=== PATIENT | female | born 1975 | race Caucasian/White ===

== ENCOUNTER → 2021-01-28 | Outpatient (CLI) | payer OTHER ==
--- NOTE | 2021-02-04 11:59 | MM ---
Reason for exam: screening (asymptomatic). Last mammogram was performed 1 year and 2 months ago. History: Patient is nulliparous. Physical Findings: A clinical breast exam by your physician is recommended on an annual basis and results should be correlated with mammographic findings. MG 3D Screening Mammo W/Cad Bilateral CC and MLO view(s) were taken. Prior study comparison: December 13, 2019, mammogram, performed at [place]. July 15, 2018, mammogram, performed at [place]. The breast tissue is heterogeneously dense. This may lower the sensitivity of mammography. There are benign appearing round calcifications bilaterally. There is chronic nodularity in the right breast. There is no discrete abnormality. ASSESSMENT: Benign, BI-RAD 2 RECOMMENDATION: Routine screening mammogram of both breasts in 1 year.
== END | disposition home or self-care (01) ==
LOC: RADMAMWWP 08:02
PROVIDERS: ATTEND Obstetrics & Gynecology
DX: Z12.31 Encounter for screening mammogram for malignant neoplasm of breast (principal)
CPT/HCPCS: 77063; 77067

== ENCOUNTER → 2021-03-20 | Outpatient (CLI) | payer OTHER ==
--- NOTE | 2021-03-20 12:57 | ECHOF ---
Referral Reason:I87.2 Venous insufficiency MEASUREMENTS -------- HEIGHT: 167.6 cm WEIGHT: 117.9 kg BP: RVIDd: 3.0 cm (< 3.3) IVSd: 1.7 cm (0.6 - 1.1) LVIDd: 3.8 cm (3.9 - 5.3) LVPWd: 1.6 cm (0.6 - 1.1) IVSs: 2.1 cm LVIDs: 1.4 cm LVPWs: 2.1 cm LAESV Index (A-L): 25.67 ml/m Ao Diam: 3.1 cm (2.0 - 3.7) AV Cusp: 2.3 cm (1.5 - 2.6) LA Diam: 4.5 cm (2.7 - 3.8) MV EXCURSION: 15.009 mm (> 18.000) MV EF SLOPE: 45 mm/s (70 - 150) EPSS: 0.4 cm MV E Luis: 0.60 m/s MV DecT: 248 ms MV A Luis: 0.76 m/s MV E/A Ratio: 0.79 RAP: 5.00 mmHg RVSP: 13.97 mmHg FINDINGS -------- Sinus rhythm. This was a technically adequate study. The left ventricular size is normal. There is moderate concentric left ventricular hypertrophy. O verall left ventricular systolic function is normal with, an EF between 55 - 60 %. The diastolic fi lling pattern is normal for the age of the patient 14.21. The right ventricle is normal in size. Normal LA size by volume 22+/-6 ml/m2. The right atrial size is normal. Interatrial and interventricular septum intact. The aortic valve is trileaflet and appears structurally normal. There is no evidence of aortic regu rgitation. There is no evidence of aortic stenosis. There is trace mitral regurgitation. Mild tricuspid regurgitation present. There is no evidence of pulmonary hypertension. The right v entricular systolic pressure, as measured by Doppler, is 13.97mmHg. There is no pulmonic regurgitation present. The aortic root size is normal. Normal inferior vena cava with normal inspiratory collapse consistent with estimated right atrial pre ssure of 5 mmHg. There is no pericardial effusion. CONCLUSIONS -------- 1. The left ventricular size is normal. 2. There is moderate concentric left ventricular hypertrophy. 3. Overall left ventricular systolic function is normal with, an EF between 55 - 60 %. 4. The diastolic filling pattern is normal for the age of the patient 14.21 5. Mild tricuspid regurgitation present. ASSISTANT SCIENTIST: Nayla Zimmerman RDCS
== END | disposition home or self-care (01) ==
LOC: RADECHMAIN 08:08
PROVIDERS: ATTEND Internal Medicine
DX: I07.1 Rheumatic tricuspid insufficiency (principal)
CPT/HCPCS: 93306

== ENCOUNTER 2021-04-03 09:23 | Inpatient (IN) | payer OTHER ==
[2021-04-03 09:37] LABS: Glucose,Whole Blood 277 mg/dL (75-99)
[2021-04-03] MEDS ORDERED: SODIUM CHLORIDE 0.9% 1,000 ML IV STA (09:41)
--- NOTE | 2021-04-03 10:13 | ED ---
Neuro HPI - General Chief Complaint: Neuro Symptoms/Deficit Stated Complaint: left side numbness Time Seen by Provider: 04/03/21 09:40 Source: patient, RN notes reviewed Mode of arrival: ambulatory Limitations: no limitations - History of Present Illness Is the patient presenting with stroke symptoms?: Yes Last Known Well Date: 04/02/21 Last Known Well Time: 09:00 Initial Comments: This a 45-year-old female presents emergency Department chief complaint of left- sided numbness, heaviness. Patient states this started yesterday at breakfast before 9 AM yesterday. Patient states that she initially thought she was just related to her carpal tunnel which she had numbness in left arm and developed numbness and left leg and again blame this on the way she was sitting on a barst ool. Patient states that symptoms progressively worsened and which she has whole left sided body numbness states it's heavy. Patient states she just feels off, slightly off balance at times. No went of headache, blurred vision or any focal weakness. Patient states she was seen by her PCP and sent here to rule out CVA. She is a known diabetic, history of hypothyroidism, myasthenia gravis. - Related Data Home Medications: Home Medications Medication Instructions Recorded Confirmed Aspirin [[place]-Fela Sol[place] Aspirin EC] 81 mg PO DAILY 04/03/21 04/03/21 Cholecalciferol [Vitamin D3 (25 50 mcg PO DAILY 04/03/21 04/03/21 Mcg = 1000 Iu)] Furosemide [Lasix] 20 mg PO DAILY 04/03/21 04/03/21 Insulin Aspart (For Pump) [NovoLOG 0.01 unit SQ-PUMP CONTINUOUS 04/03/21 04/03/21 (For Pump)] Levothyroxine Sodium [Synthroid] 150 mcg PO DAILY 04/03/21 04/03/21 Magnesium Oxide [Lee] 500 mg PO DAILY 04/03/21 04/03/21 Metoprolol Succinate (ER) [Toprol 100 mg PO DAILY 04/03/21 04/03/21 Xl] Multivitamins, Thera [Multivitamin 1 tab PO DAILY 04/03/21 04/03/21 (formulary)] Progesterone, Micronized 200 mg PO DIRECTED 04/03/21 04/03/21 [Progesterone] Rosuvastatin Calcium [Crestor] 20 mg PO DAILY 04/03/21 04/03/21 Ubidecarenone [Co Q-10] 100 mg PO DAILY 04/03/21 04/03/21 Valsartan/Hydrochlorothiazide 1 tab PO DAILY 04/03/21 04/03/21 [Valsartan-Hctz 320-12.5 mg Tab] Vitamin B Complex 1 cap PO DAILY 04/03/21 04/03/21 metFORMIN HCL [Glucophage] 500 mg PO BID 04/03/21 04/03/21 Allergies/Adverse Reactions: Allergies Allergy/AdvReac Type Severity Reaction Status Date / Time No Known Allergies Allergy Verified 04/03/21 11:16 Review of Systems ROS Statement: Those systems with pertinent positive or pertinent negative responses have been documented in the HPI. ROS Other: All systems not noted in ROS Statement are negative. General Exam Limitations: no limitations General appearance: alert, in no apparent distress Head exam: Present: atraumatic, normocephalic, normal inspection Eye exam: Present: normal appearance, PERRL, EOMI. Absent: scleral icterus, conjunctival injection, periorbital swelling ENT exam: Present: normal exam, normal oropharynx, mucous membranes moist Neck exam: Present: normal inspection, full ROM. Absent: tenderness, meningismus, lymphadenopathy Respiratory exam: Present: normal lung sounds bilaterally. Absent: respiratory distress, wheezes, rales, rhonchi, stridor Cardiovascular Exam: Present: regular rate, normal rhythm, normal heart sounds. Absent: systolic murmur, diastolic murmur, rubs, gallop, clicks Extremities exam: Present: other (Upper and lower extremity strength equal bilaterally neurovascular intact) Neurological exam: Present: alert, oriented X3, CN II-XII intact, reflexes nor mal. Absent: motor sensory deficit Expanded Patient oriented to: Present: person, place, time Speech: Present: fluid speech Cranial nerves: EOM's Intact: Normal, Tongue Deviation: Normal, Nystagmus: Normal Cerebellar function: Finger to Nose: Normal Sensory exam: Upper Extremity Light Touch: Normal, Lower Extremity Light Touch: Normal Motor strength exam: RUE: 5, LUE: 5, RLE: 5, LLE: 5 Eye Response: (4) open spontaneously Motor Response: (6) obeys commands Verbal Response: (5) oriented [place] Total: 15 Skin exam: Present: warm, dry, intact, normal color. Absent: rash Stroke MDM - Lab Data Result diagrams: 04/03/21 09:57 04/03/21 09:57 Lab Results 04/03/21 04/03/21 04/03/21 Range/Units 09:35 09:57 09:57 WBC 7.0 (3.8-10.6) k/uL RBC 5.03 (3.80-5.40) m/uL Hgb 15.7 (11.4-16.0) gm/dL Hct 44.5 (34.0-46.0) % MCV 88.6 D (80.0-100.0) fL MCH 31.2 (25.0-35.0) pg MCHC 35.2 (31.0-37.0) g/dL RDW 12.7 (11.5-15.5) % Plt Count 276 (150-450) k/uL MPV 7.8 Neutrophils % 71 % Lymphocytes % 18 % Monocytes % 6 % Eosinophils % 2 % Basophils % 1 % Neutrophils # 5.0 (1.3-7.7) k/uL Lymphocytes # 1.3 (1.0-4.8) k/uL Monocytes # 0.4 (0-1.0) k/uL Eosinophils # 0.1 (0-0.7) k/uL Basophils # 0.1 (0-0.2) k/uL PT 10.8 (9.0-12.0) sec INR 1.0 (<1.2) APTT 24.6 (22.0-30.0) sec Sodium (137-145) mmol/L Potassium (3.5-5.1) mmol/L Chloride (98-107) mmol/L Carbon Dioxide (22-30) mmol/L Anion Gap mmol/L BUN (7-17) mg/dL Creatinine (0.52-1.04) mg/dL Est GFR (CKD-EPI)AfAm (>60 ml/min/1.73 sqM) Est GFR (CKD-EPI)NonAf (>60 ml/min/1.73 sqM) Glucose (74-99) mg/dL POC Glucose (mg/dL) 277 H (75-99) mg/dL POC Glu Regeneration Operator ID Cortez Schneider Calcium (8.4-10.2) mg/dL Total Bilirubin (0.2-1.3) mg/dL AST (14-36) U/L ALT (4-34) U/L Alkaline Phosphatase (38-126) U/L Troponin I (0.000-0.034) ng/mL Total Protein (6.3-8.2) g/dL Albumin (3.5-5.0) g/dL 04/03/21 04/03/21 Range/Units 09:57 09:57 WBC (3.8-10.6) k/uL RBC (3.80-5.40) m/uL Hgb (11.4-16.0) gm/dL Hct (34.0-46.0) % MCV (80.0-100.0) fL MCH (25.0-35.0) pg MCHC (31.0-37.0) g/dL RDW (11.5-15.5) % Plt Count (150-450) k/uL MPV Neutrophils % % Lymphocytes % % Monocytes % % Eosinophils % % Basophils % % Neutrophils # (1.3-7.7) k/uL Lymphocytes # (1.0-4.8) k/uL Monocytes # (0-1.0) k/uL Eosinophils # (0-0.7) k/uL Basophils # (0-0.2) k/uL PT (9.0-12.0) sec INR (<1.2) APTT (22.0-30.0) sec Sodium 135 L (137-145) mmol/L Potassium 4.1 (3.5-5.1) mmol/L Chloride 98 (98-107) mmol/L Carbon Dioxide 29 (22-30) mmol/L Anion Gap 8 mmol/L BUN 16 (7-17) mg/dL Creatinine 1.00 (0.52-1.04) mg/dL Est GFR (CKD-EPI)AfAm 78 (>60 ml/min/1.73 sqM) Est GFR (CKD-EPI)NonAf 68 (>60 ml/min/1.73 sqM) Glucose 301 H (74-99) mg/dL POC Glucose (mg/dL) (75-99) mg/dL POC Glu Regeneration Operator ID Calcium 10.1 (8.4-10.2) mg/dL Total Bilirubin 0.9 (0.2-1.3) mg/dL AST 64 H (14-36) U/L ALT 67 H (4-34) U/L Alkaline Phosphatase 99 (38-126) U/L Troponin I <0.012 (0.000-0.034) ng/mL Total Protein 8.0 (6.3-8.2) g/dL Albumin 4.7 (3.5-5.0) g/dL - Medical Decision Making 45-year-old female presented from for left-sided paresthesias. She had some associated heaviness, slight weakness in the left and some difficulty with finger-nose and PCPs office. Sent in to rule out CVA. Patient CT does not show an acute changes so patient still symptomatic feels off balance on gait. Patient will be admitted for neurology evaluation, MRI. 04/03/21 11:57 EKG performed at 9:30 normal sinus rhythm rate of 81 AL 162 Qrs 104 QT/QTC 400/464 Past Medical History Past Medical History: Diabetes Mellitus, Hypertension, Thyroid Disorder Additional Past Medical History / Comment(s): insulin pump History of Any Multi-Drug Resistant Organisms: None Reported Additional Past Surgical History / Comment(s): thyroidectomy Past Psychological History: No Psychological Hx Reported Smoking Status: Never smoker Past Alcohol Use History: None Reported Past Drug Use History: None Reported Course Vital Signs 04/03/21 09:24 Temperature 98.3 F Pulse Rate 92 Respiratory 16 Rate Blood Pressure 181/102 O2 Sat by Pulse 99 Oximetry Disposition Clinical Impression: Cerebrovascular accident (CVA) Disposition: ADMITTED IP TO THIS [facility] Condition: Fair Referrals: Sawyer Potts MD [Primary Care Provider] - 1-2 days
[2021-04-03 10:28] LABS: Basophils # (A) 0.1 k/uL (0-0.2); Basophils % (A) 1 %; Eosinophils # (A) 0.1 k/uL (0-0.7); Eosinophils % (A) 2 %; HCT 44.5 % (34.0-46.0); HGB 15.7 gm/dL (11.4-16.0); Lymphocytes # (A) 1.3 k/uL (1.0-4.8); Lymphocytes % (A) 18 %; MCH 31.2 pg (25.0-35.0); MCHC 35.2 g/dL (31.0-37.0); Mean Platelet Volume 7.8; Monocytes # (A) 0.4 k/uL (0-1.0); Monocytes % (A) 6 %; Neutrophils % (A) 71 %; Platelet Count 276 k/uL (150-450); RBC 5.03 m/uL (3.80-5.40); RDW 12.7 % (11.5-15.5)
[2021-04-03 10:39] LABS: Albumin 4.7 g/dL (3.5-5.0); Calcium 10.1 mg/dL (8.4-10.2); Potassium 4.1 mmol/L (3.5-5.1); Total Bilirubin 0.9 mg/dL (0.2-1.3)
[2021-04-03 10:44] LABS: MCV 88.6 fL (80.0-100.0)
[2021-04-03 10:51] LABS: Partial Thromboplastin Time 24.6 sec (22.0-30.0); Prothrombin Time 10.8 sec (9.0-12.0)
--- NOTE | 2021-04-03 10:57 | CT ---
EXAMINATION TYPE: CT brain wo con DATE OF EXAM: 04/03/2021 COMPARISON: None INDICATION: Lt side numbness DLP: 1127.4 mGycm, Automated exposure control for dose reduction was used. CONTRAST: None CT of the brain is performed utilizing 3 mm thick sections through the posterior fossa and 3 mm thick sections through the remaining calvarium. Study is performed within 24 hours of arrival to the hosp ital. No abnormal hyperdensity is present to suggest an acute intracranial hemorrhage. No mass lesion is evident. No acute infarcts are evident. Very minimal periventricular white matter hypodensity may be present m ost likely on the basis of microvascular ischemic change. Ventricles and sulci are appropriate for the patient age. Paranasal sinuses and mastoid air cells within the [id number] are clear. Proptosis is present. IMPRESSIONS: 1. There may be some minimal chronic appearing periventricular white matter ischemic changes. 2. No acute intracranial process.
--- NOTE | 2021-04-03 11:37 | XR ---
EXAMINATION TYPE: XR chest 2V DATE OF EXAM: 04/03/2021 COMPARISON: NONE HISTORY: Altered mental status TECHNIQUE: Frontal and lateral views of the chest are obtained. FINDINGS: There is no focal air space opacity, pleural effusion, or pneumothorax seen. The cardiac silhouette size is within normal limits. The osseous structures are intact. IMPRESSION: No acute cardiopulmonary process.
[2021-04-03] MEDS ORDERED: ASPIRIN 325 MG TAB PO STA (11:58)
[2021-04-03] MEDS ORDERED: ACETAMINOPHEN TAB 325 MG TAB PO PRN (11:58)
[2021-04-03] MEDS ORDERED: MELATONIN 3 MG TABLET PO PRN (12:12)
[2021-04-03] MEDS ORDERED: NALOXONE 0.4 MG/ML 1 ML VIAL IV PRN (12:12)
[2021-04-03] MEDS: SODIUM CHLORIDE 0.9% 1,000 ML IV SCH ×2 (12:52→23:25)
[2021-04-03] MEDS: Insulin Aspart (For Pump) 100 UNIT/ML VIAL SQ-PUMP SCH (12:53)
--- NOTE | 2021-04-03 14:15 | US ---
EXAMINATION TYPE: US carotid duplex BILAT DATE OF EXAM: 04/03/2021 COMPARISON: NONE CLINICAL HISTORY: CVA. EXAM MEASUREMENTS: RIGHT: Peak Systolic Velocity (PSV) cm/sec ----- Right CCA: 53.1 ----- Right ICA: 77.9 ----- Right ECA: 87.9 ICA/CCA ratio: 1.5 RIGHT: End Diastole cm/sec ----- Right CCA: 13.0 ----- Right ICA: 21.9 ----- Right ECA: 8.9 LEFT: Peak Systolic Velocity (PSV) cm/sec ----- Left CCA: 65.9 ----- Left ICA: 69.8 ----- Left ECA: 4.8 ICA/CCA ratio: 1.1 LEFT: End Diastole cm/sec ----- Left CCA: 9.8 ----- Left ICA: 17.6 ----- Left ECA: 4.8 VERTEBRALS (direction of flow): Right Vertebral: Antegrade Left Vertebral: Antegrade Rhythm: Normal Morbidly obese patients. No obvious atherosclerotic changes, no significant velocity elevations. IMPRESSION: No sonographic evidence for hemodynamically significant stenosis in the carotid arteries. Criteria for Assigning % of Stenosis / Diameter reduction (Estimation based on the indirect measurements of the internal carotid artery velocities (ICA PSV). 1. Normal (no stenosis)=ICA PSV < 125 cm/s: ratio < 2.0: ICA EDV<40 cm/s. 2. Less than 50% stenosis=ICA PSV < 125 cm/s: ratio < 2.0: ICA EDV<40 cm/s. 3. 50 to 69% stenosis=ICA PSV of 125 to 230 cm/s: ration 2.0 ? 4.0: ICA EDV 40-100 cm/s. 4. Greater than 70% stenosis to near occlusion= ICA PSV > 230 cm/s: ratio > 4.0: ICA EDV > 100 cm/s. 5. Near occlusion= ICA PSV velocities may be low or undetectable: variable ratio and ICA EDV. 6. Total occlusion=unable to detect flow.
--- NOTE | 2021-04-03 15:12 | P.HPIM ---
History of Present Illness H&P Date: 04/03/21 Chief Complaint: Left-sided numbness 45-year-old woman with a medical history of diabetes, hypertension, hyperlipidemia, Graves' disease status post thyroidectomy with iatrogenic hypothyroidism presented for left-sided numbness. Patient says her symptoms started yesterday morning with left hand numbness and progressed to left arm numbness, then later on in the evening she also developed left leg numbness. Throughout the day today she intermittently experienced left facial numbness as well. She called her primary care physician regarding these symptoms and was advised to come to the emergency room to rule out stroke. Patient has ever had a stroke before. Patient denies symptoms of fevers, chills, nausea, vomiting, chest pain, palpitations, cough, dyspnea, abdominal pain, constipation, diarrhea, dysuria, dyschezia, weakness of extremities. She denies visual c hanges, tinnitus, photo/phonophobia. In the emergency room, patient was afebrile, 181/102, pulse rate 92, 99% on room air. Review of Systems All Systems reviewed and pertinent positives and negatives noted in HPI, all other symptoms are negative Past Medical History Past Medical History: Diabetes Mellitus, Hypertension, Thyroid Disorder Additional Past Medical History / Comment(s): insulin pump History of Any Multi-Drug Resistant Organisms: None Reported Additional Past Surgical History / Comment(s): thyroidectomy Past Psychological History: No Psychological Hx Reported Smoking Status: Never smoker Past Alcohol Use History: None Reported Past Drug Use History: None Reported Medications and Allergies Home Medications Medication Instructions Recorded Confirmed Type Aspirin [[place] Aspirin EC] 81 mg PO DAILY 04/03/21 04/03/21 History Cholecalciferol [Vitamin D3 (25 50 mcg PO DAILY 04/03/21 04/03/21 History Mcg = 1000 Iu)] Furosemide [Lasix] 20 mg PO DAILY 04/03/21 04/03/21 History Insulin Aspart (For Pump) [NovoLOG 0.01 unit SQ-PUMP CONTINUOUS 04/03/21 04/03/21 History (For Pump)] Levothyroxine Sodium [Synthroid] 150 mcg PO DAILY 04/03/21 04/03/21 History Magnesium Oxide [Lee] 500 mg PO DAILY 04/03/21 04/03/21 History Metoprolol Succinate (ER) [Toprol 100 mg PO DAILY 04/03/21 04/03/21 History Xl] Multivitamins, Thera [Multivitamin 1 tab PO DAILY 04/03/21 04/03/21 History (formulary)] Progesterone, Micronized 200 mg PO DIRECTED 04/03/21 04/03/21 History [Progesterone] Rosuvastatin Calcium [Crestor] 20 mg PO DAILY 04/03/21 04/03/21 History Ubidecarenone [Co Q-10] 100 mg PO DAILY 04/03/21 04/03/21 History Valsartan/Hydrochlorothiazide 1 tab PO DAILY 04/03/21 04/03/21 History [Valsartan-Hctz 320-12.5 mg Tab] Vitamin B Complex 1 cap PO DAILY 04/03/21 04/03/21 History metFORMIN HCL [Glucophage] 500 mg PO BID 04/03/21 04/03/21 History Allergies Allergy/AdvReac Type Severity Reaction Status Date / Time No Known Allergies Allergy Verified 04/03/21 11:16 Physical Exam Osteopathic Statement: *. No significant issues noted on an osteopathic structural exam other than those noted in the History and Physical/Consult. Vitals: Vital Signs Temp Pulse Resp BP Pulse Ox 04/03/21 12:54 80 18 147/87 99 04/03/21 09:24 98.3 F 92 16 181/102 99 Intake and Output 04/03/21 04/03/21 04/03/21 06:59 14:59 22:59 Other: Weight 119.295 kg Gen: awake, alert HEENT: normocephalic, atraumatic, good hearing acuity, moist mucous membranes Resp: good air exchange, breathing comfortably with no accessory muscle use, clear to auscultation bilaterally CVS: good distal perfusion x 4, regular rate and rhythm without murmurs GI: soft, NTTP, ND, appropriate bowel sounds : no SPT, no CVAT, guerra catheter not present MSK: no pitting edema, no clubbing Neuro: Decreased sensation to light touch on the left side, no motor weakness, intact finger to nose bilaterally Psych: cooperative, euthymic mood Results CBC & Chem 7: 04/03/21 09:57 04/03/21 09:57 Labs: Abnormal Lab Results - Last 24 Hours (Table) 04/03/21 04/03/21 Range/Units 09:35 09:57 Sodium 135 L (137-145) mmol/L Glucose 301 H (74-99) mg/dL POC Glucose (mg/dL) 277 H (75-99) mg/dL AST 64 H (14-36) U/L ALT 67 H (4-34) U/L Assessment and Plan Assessment: Left-sided numbness -Admit to telemetry -Neurology consult -Aspirin, statin -MRI of the brain pending -Echo, pending -Carotid Doppler did not demonstrate stenosis -A1c, TSH, lipid panel -PT/OT Hypertension Hyperlipidemia Type 2 diabetes, insulin-dependent Hypothyroidism, iatrogenic -Home medications reviewed and reconciled -Holding home antihypertensives for the next 24 hours -Before meals/at bedtime sugar checks -Continue continuous insulin pump -Low-dose sliding scale insulin -Continue levothyroxine Patient is full code Lovenox DVT prophylaxis
[2021-04-03] MEDS ORDERED: CLOPIDOGREL 75 MG TAB PO STA (16:12)
--- NOTE | 2021-04-03 16:23 | P.CNNES ---
History of Present Illness Consult date: 04/03/21 Requesting physician: Porfirio Vaughan Reason for Consult: stroke History of Present Illness: This is a 45-year-old woman with medical history of diabetes mellitus type I (since age 6 years old) on insulin pump, Graves disease s/p thyoridectomy (2005), hypothyroidism, Hypertension (since 2003), hypercholestremia who presen long to the emergency department on 04/02/2021 for numbness over left side of the body including the face. The patient was sent by her PCP and result he send the patient to the hospital. The patient the her symptoms began yesterday (04/02/2021) around 9:00 AM in which she noticed that she is having numbness over the left hand and she felt that was progressively ascended up then she noticed that in her lower extremity in left foot that acended up then entire left side and then left side of face. She also has tingling on the left side. She denies any focal weakness, visual disturbance, difficulty getting her words out or swallowing. She didn't make much out of it since she felt she was wor wesley too hard. As a result she was seen by her PCP and she was sent to the hospital to rule out stroke. He denies of any fever, diarrhea, any upper respiratory tract infection recently. She denies history of stroke or TIA in the past. She denies of tobacco use or illcit drug use. She socially drinks alcohol. In her chart it states she had Myasthenia Gravis which she denied it. Some of the patient home medication consists of aspirin 81 mg, Crestor 20 mg daily, metformin, Lasix, hydrochlorothiazide, Synthroid, vitamin D, magnesium oxide, Lasix, hydrochlorothiazide with valsartan. She stated in the past she was on Lipitor high dose (does not recall and had diarrhea). Some other workup in the hospital consisted of: Initial vital signs: Blood pressure of 181/102, heart rate of 92, respiratory of 16, temperature of 98.3 Fahrenheit oral and pulse ox of 99% room air. CT of the head is reported as there may be some minimal chronic-appearing periventricular white matter ischemic changes. No acute intracranial process. Carotid duplex is reported as no sonographic evidence for hemodynamically significant stenosis in the carotid arteries. EKG is reported as normal sinus rhythm. Normal EKG. Patient initial POC glucose is 277 and the serum glucose is 301 which is elevated. The sodium is 135 which is mildly low. AST of 64 and ALT of 67 inches mildly elevated. Otherwise the rest of the chemistry panel is within normal limits. CBC is within normal limits. Review of Systems Review of system: The 12 point system was reviewed and apparent positive and negative per HPI. Past Medical History Past Medical History: Diabetes Mellitus, Hypertension, Thyroid Disorder Additional Past Medical History / Comment(s): insulin pump History of Any Multi-Drug Resistant Organisms: None Reported Additional Past Surgical History / Comment(s): thyroidectomy Past Psychological History: No Psychological Hx Reported Smoking Status: Never smoker Past Alcohol Use History: None Reported Past Drug Use History: None Reported Medications and Allergies Home Medications Medication Instructions Recorded Confirmed Type Aspirin [[place] Aspirin EC] 81 mg PO DAILY 04/03/21 04/03/21 History Cholecalciferol [Vitamin D3 (25 50 mcg PO DAILY 04/03/21 04/03/21 History Mcg = 1000 Iu)] Furosemide [Lasix] 20 mg PO DAILY 04/03/21 04/03/21 History Insulin Aspart (For Pump) [NovoLOG 0.01 unit SQ-PUMP CONTINUOUS 04/03/21 04/03/21 History (For Pump)] Levothyroxine Sodium [Synthroid] 150 mcg PO DAILY 04/03/21 04/03/21 History Magnesium Oxide [Lee] 500 mg PO DAILY 04/03/21 04/03/21 History Metoprolol Succinate (ER) [Toprol 100 mg PO DAILY 04/03/21 04/03/21 History Xl] Multivitamins, Thera [Multivitamin 1 tab PO DAILY 04/03/21 04/03/21 History (formulary)] Progesterone, Micronized 200 mg PO DIRECTED 04/03/21 04/03/21 History [Progesterone] Rosuvastatin Calcium [Crestor] 20 mg PO DAILY 04/03/21 04/03/21 History Ubidecarenone [Co Q-10] 100 mg PO DAILY 04/03/21 04/03/21 History Valsartan/Hydrochlorothiazide 1 tab PO DAILY 04/03/21 04/03/21 History [Valsartan-Hctz 320-12.5 mg Tab] Vitamin B Complex 1 cap PO DAILY 04/03/21 04/03/21 History metFORMIN HCL [Glucophage] 500 mg PO BID 04/03/21 04/03/21 History Allergies Allergy/AdvReac Type Severity Reaction Status Date / Time No Known Allergies Allergy Verified 04/03/21 11:16 Physical Examination - Vital Signs Vital Signs: Vital Signs Temp Pulse Resp BP Pulse Ox 04/03/21 12:54 80 18 147/87 99 04/03/21 09:24 98.3 F 92 16 181/102 99 Intake and Output 04/03/21 04/03/21 04/03/21 06:59 14:59 22:59 Other: Weight 119.295 kg GENERAL: The patient is lying in bed and is not in acute distress. CHEST: The heart rate is regular rate rhythm. No murmurs to auscultation. No carotid bruit bilaterally. LUNG: Clear to auscultation bilaterally no wheezing noted throughout. Not labored breathing. ABDOMEN/GI: Bowel sounds present in all 4 quadrants. No tenderness to palpation throughout. NEUROLOGICAL: Higher mental function: The patient is awake, alert, oriented to self, place and time. Patient is following commands. No aphasia and no neglect. Cranial nerves: The pupils are round, equal and reactive to light and accommodation. Visual mcallister are full to confrontation throughout. Extraocular movement is intact no nystagmus is noted. Facial sensation is decreased to touch over the left V2 and V3 disturbtion, otherwise normal to touch elsewhere. The facial strength is normal throughout. Hearing is normal bilaterally to hand rub. Tongue is midline and moved [id number] without any difficulty. No dysarthria is noted. Shoulder shrug is normal bilaterally. Motor: Gait is deferred. The strength is 5 over 5 throughout. Normal tone and bulk. Cerebellum: Normal finger to nose bilaterally. Sensation: Sensation is decrease over the entire left lower extremity but was patchy over the left upper extremity to touch. Reflexes (right/left): 2+ throughout upper while patellar are 1-2+ and ankles are 1+ bilaterally.. Plantars are mute bilaterally. Results Anderson virus PCR was not detected. Basic coagulation study are within normal limits. - Laboratory Findings CBC and BMP: 04/03/21 09:57 04/03/21 09:57 Abnormal Lab Findings: Abnormal Labs 04/03/21 04/03/21 09:35 09:57 Sodium 135 L Glucose 301 H POC Glucose (mg/dL) 277 H AST 64 H ALT 67 H Assessment and Plan Assessment: * Paresthesia over the entire left side including the face is the likely due to subacute stroke (symptom onset on 04/02/2021). No IV tpa since outside window. Likely stroke etiology is small vessel disease because of her risk factors (DM, HTN, hypercholestremia and obesity) * Eleavated sugar on presentation with history of type I diabetes mellitus (on insulin pump) * Mild elevated liver function * Hypertension (since 2003) * Hypercholestremia (since 2003) * History of Graves disease s/p thyroidectomy 2005 * Hypothyroidism * Morbid obesity Plan: The ED the patient was given aspirin 325 mg once. Patient was restarted on her home medication of aspirin 81 mg. I also started the patient on the Plavix 75 mg daily and will load the patient with Plavix 300 mg once today. She was started on Lipitor 80 mg daily at bedtime for secondary stroke prophylaxis but I will decrease it to 40 mg daily at bedtime because of the the mild elevated liver function test and could not tolerate high dose in the past (had diarrhea). MR the brain, 2-D echo, TSH, HbA1c and lipid panel are ordered. PT, OT and KEYSEATING MACHINE SET UP OPERATOR are consulted Placed the patient on every 4 hours neuro checks. Placed on continuous cardiac monitoring. We'll defer the rest of the medical management to the primary team The plan is discussed with the patient and her nurse. Thank you for the consultation. Clifford Guadalupe MD Neuro-Hospitalist Time with Patient: Greater than 30
[2021-04-03 16:54] LABS: Glucose,Whole Blood 123 mg/dL (75-99)
[2021-04-03] MEDS: INSULIN ASPART (NovoLOG) 100 UNIT/ML VIAL SQ SCH (17:51)
[2021-04-03 20:13] LABS: Glucose,Whole Blood 139 mg/dL (75-99)
[2021-04-03] MEDS: ATORVASTATIN 40 MG TAB PO SCH (20:31)
[2021-04-03] MEDS ORDERED: ATORVASTATIN 80 MG TAB PO SCH (21:00)
[2021-04-04] MEDS: LEVOTHYROXINE 75 MCG TAB PO SCH (06:26)
[2021-04-04] MEDS: INSULIN ASPART (NovoLOG) 100 UNIT/ML VIAL SQ SCH ×3 (06:28→16:58)
[2021-04-04 06:39] LABS: Glucose,Whole Blood 113 mg/dL (75-99)
[2021-04-04 07:26] LABS: Basophils % (A) 1 %; Eosinophils # (A) 0.1 k/uL (0-0.7); Eosinophils % (A) 2 %; HCT 41.8 % (34.0-46.0); HGB 14.6 gm/dL (11.4-16.0); Lymphocytes # (A) 1.5 k/uL (1.0-4.8); Lymphocytes % (A) 26 %; MCH 31.2 pg (25.0-35.0); MCHC 34.9 g/dL (31.0-37.0); MCV 89.4 fL (80.0-100.0); Mean Platelet Volume 7.9; Monocytes # (A) 0.5 k/uL (0-1.0); Monocytes % (A) 8 %; Neutrophils # (A) 3.5 k/uL (1.3-7.7); Neutrophils % (A) 61 %; Platelet Count 248 k/uL (150-450); RBC 4.67 m/uL (3.80-5.40); RDW 12.9 % (11.5-15.5); WBC 5.7 k/uL (3.8-10.6)
[2021-04-04 07:39] LABS: Magnesium 1.8 mg/dL (1.6-2.3); Potassium 3.6 mmol/L (3.5-5.1)
[2021-04-04] MEDS: CHOLECALCIFEROL 25 MCG (1000 IU) TABLET PO SCH (08:26)
[2021-04-04] MEDS: ASPIRIN 81 MG PO SCH (08:26)
[2021-04-04] MEDS: CLOPIDOGREL 75 MG TAB PO SCH (08:27)
[2021-04-04] MEDS: MULTIVITAMINS, THERA 1 EACH TAB PO SCH (08:27)
[2021-04-04] MEDS: FUROSEMIDE 20 MG TAB PO SCH (08:27)
[2021-04-04] MEDS: ENOXAPARIN 40 MG/0.4 ML SYRINGE SQ SCH (08:27)
[2021-04-04] MEDS: MAGNESIUM OXIDE 400 MG TAB PO SCH (08:27)
[2021-04-04] MEDS: SODIUM CHLORIDE 0.9% 1,000 ML IV SCH ×2 (08:28→16:57)
[2021-04-04] MEDS ORDERED: ASPIRIN 325 MG TAB PO SCH (09:00)
[2021-04-04] MEDS ORDERED: NON FORMULARY DRUG (Vitamin B Complex [Vitamin B Complex] 1 EACH Capsule) PO SCH (09:00)
[2021-04-04] MEDS ORDERED: NON FORMULARY DRUG (Ubidecarenone [Co Q-10] 100 MG Capsule) PO SCH (09:00)
[2021-04-04] MEDS ORDERED: NON FORMULARY DRUG (Aspirin [St. Joseph Aspirin Ec] 81 MG Tablet.Dr) PO SCH (09:00)
--- NOTE | 2021-04-04 11:04 | P.PN ---
Subjective Progress Note Date: 04/04/21 Pt reports mild improvement in numbness of the face, but ongoing numbness of left side of body. Objective - Vital Signs Vital signs: Vital Signs Temp 98.1 F 04/04/21 08:00 Pulse 78 04/04/21 08:00 Resp 16 04/04/21 08:00 BP 124/68 04/04/21 08:00 Pulse Ox 98 04/04/21 08:00 Intake & Output 04/03/21 04/04/21 04/04/21 18:59 06:59 18:59 Intake Total 180 Balance 180 Weight 119.295 kg 119.6 kg Intake: Oral 180 Other: # Voids 1 - Exam Gen: awake, alert HEENT: normocephalic, atraumatic, good hearing acuity, moist mucous membranes Resp: good air exchange, breathing comfortably with no accessory muscle use, clear to auscultation bilaterally CVS: good distal perfusion x 4, regular rate and rhythm without murmurs GI: soft, NTTP, ND, appropriate bowel sounds : no SPT, no CVAT, guerra catheter not present MSK: no pitting edema, no clubbing Neuro: Decreased sensation to light touch on the left side, no motor weakness, intact finger to nose bilaterally Psych: cooperative, euthymic mood - Labs CBC & Chem 7: 04/04/21 07:07 04/04/21 07:07 Labs: Abnormal Lab Results - Last 24 Hours (Table) 04/03/21 04/03/21 04/04/21 Range/Units 16:52 20:08 06:33 Glucose (74-99) mg/dL POC Glucose (mg/dL) 123 H 139 H 113 H (75-99) mg/dL 04/04/21 Range/Units 07:07 Glucose 119 H (74-99) mg/dL POC Glucose (mg/dL) (75-99) mg/dL Assessment and Plan Assessment: Left-sided numbness -Admit to telemetry -Neurology consult, appreciate recs -Aspirin, statin -MRI of the brain pending -Echo, pending -Carotid Doppler did not demonstrate stenosis -A1c, lipid panel, pending -TSH 0.845 -PT/OT Hypertension Hyperlipidemia Type 2 diabetes, insulin-dependent Hypothyroidism, iatrogenic -Home medications reviewed and reconciled -Holding home antihypertensives for the next 24 hours -Before meals/at bedtime sugar checks -Continue continuous insulin pump -Low-dose sliding scale insulin -Continue levothyroxine Patient is full code Lovenox DVT prophylaxis
[2021-04-04 11:32] LABS: Chol/HDL Ratio 2.52; LDL Cholesterol,Calculated 63.4 mg/dL (0.0-131.0); VLDL Calculation 27.6 mg/dL (5.00-40.00)
[2021-04-04 12:10] LABS: Glucose,Whole Blood 159 mg/dL (75-99)
[2021-04-04] MEDS: Insulin Aspart (For Pump) 100 UNIT/ML VIAL SQ-PUMP SCH (12:14)
--- NOTE | 2021-04-04 12:17 | MR ---
EXAMINATION TYPE: MR brain wo/w con DATE OF EXAM: 04/04/2021 COMPARISON: CT brain 04/03/2021 HISTORY: Cerebrovascular accident TECHNIQUE: Multiplanar, multisequence images of the brain and brainstem is performed without and with IV contras t, utilizing 12 mL intravenous Gadavist . FINDINGS: Diffusion weighted images demonstrate right-sided brainstem restricted diffusion, focus at the dorsal aspect of the kai is noted with corresponding hyperintensity on inversion recovery T2-estelle ghted sequences, intermediate intensity on T1-weighted images. There is no extra-axial fluid collect ion, there are confluent and scattered hyperintensities in the pericallosal, periventricular, subcort ical white matter, approximately 50 lesions are present, largest lesion in the right frontal white ma tter on axial image 21 measures approximately 1 cm. The ventricular system and cisternal spaces are normal in size and appearance. The brain volume is age appropriate. Midline structures otherwise demonstrate normal morphology. The craniocervical junction appears with in normal limits. Post contrast images demonstrate no abnormal enhancement. The dural venous sinuses appear patent. The visualized sinuses are clear and the globes are intact. IMPRESSION: Subacute brainstem infarct. Nonspecific white matter demyelination, consider vasculitis h ypertension, migraine headaches, chronic microvascular angiopathy, multiple sclerosis is not excluded .
--- NOTE | 2021-04-04 12:40 | ECHOF ---
Referral Reason:CVA MEASUREMENTS -------- HEIGHT: 167.6 cm WEIGHT: 119.3 kg BP: 148/69 RVIDd: 3.2 cm (< 3.3) IVSd: 1.3 cm (0.6 - 1.1) LVIDd: 4.9 cm (3.9 - 5.3) LVPWd: 1.4 cm (0.6 - 1.1) IVSs: 2.0 cm LVIDs: 3.0 cm LVPWs: 1.9 cm LA Diam: 3.0 cm (2.7 - 3.8) Ao Diam: 3.1 cm (2.0 - 3.7) AV Cusp: 2.2 cm (1.5 - 2.6) MV EXCURSION: 16.312 mm (> 18.000) MV EF SLOPE: 83 mm/s (70 - 150) EPSS: 0.5 cm MV E Luis: 0.77 m/s MV DecT: 260 ms MV A Luis: 0.92 m/s MV E/A Ratio: 0.84 FINDINGS -------- Sinus rhythm. This was a technically adequate study. The left ventricular size is normal. There is moderate concentric left ventricular hypertrophy. O verall left ventricular systolic function is normal with, an EF between 60 - 65 %. The right ventricle is normal in size. The left atrium is normal in size. The right atrium is normal in size. Interatrial and interventricular septum intact. The aortic valve is trileaflet, and appears structurally normal. No aortic stenosis or regurgitation. Mild mitral annular calcification present. Unable to estimate RVSP due to inadequate TR jet spectral doppler profile. There is no pulmonic regurgitation present. The aortic root size is normal. Normal inferior vena cava with normal inspiratory collapse consistent with estimated right atrial pre ssure of 5 mmHg. There is no pericardial effusion. CONCLUSIONS -------- 1. The left ventricular size is normal. 2. There is moderate concentric left ventricular hypertrophy. 3. Overall left ventricular systolic function is normal with, an EF between 60 - 65 %. 4. Mild mitral annular calcification present. 5. There is no pericardial effusion. ELDERLY SITTER: Rosario Clark [facility]
[2021-04-04 14:46] LABS: Hemoglobin A1C 7.9 % (4.0-6.0)
--- NOTE | 2021-04-04 14:48 | P.CRDCN ---
History of Present Illness History of present illness: HISTORY OF PRESENTING ILLNESS This is a pleasant 45-year-old female past medical history significant for hypertension, myasthenia gravis, hypothyroidism, Graves disease s/p thyroidectomy (2005), type I diabetes (diagnosed at age 6) on a insulin pump. She does not follow with a radiology tech. We have been asked to see in consultation for JESSICA. Patient presents emergency department with chief complaint of left-sided numbness and heaviness. She states that her symptoms have progressively worsened to the left side of her body became numb and heavy and presented to the emergency department. She states that since she has moved from having difficulty managing her blood pressure. She states she was on amlodipine but had significant lower extremity swelling and was taken off this medication. She states that her geospatial imagery intelligence analyst and her primary care doctor has tried different medications. She states she recently got an echocardiogram 03/20/2021 revealed an EF of 55-60%. She has not had a stress test as an outpatient. She denies alcohol, tobacco, illicit check use. She denies history of NH, stroke/TIA, coronary artery disease, atrial fibrillation. Patient underwent CT of the brain which revealed minimal chronic appearing ischemic changes, no acute process. Carotid Dopplers revealed no evidence for hemodynamically significant stenosis. MRI of the brain revealed a subacute b rainstem infarct. Nonspecific white matter demyelination consider vasculitis hypertension, migraines, chronic microvascular angiopathic MS is not excluded. Patient seen and examined at bedside, she continues to have left-sided numbness. DIAGNOSTICS EKG reveals sinus rhythm, heart rate 81, no significant STT wave abnormalities. Telemetry tracings indicate sinus mechanism, no arrhythmia noted. HR 60-80s. Chest xray no acute cardiopulmonary process. Echocardiogram 04/04/21 revealed an EF of 60-65% no wall motion abnormalities Laboratory reviewed, CBC is unremarkable, sodium 138, potassium 3.6, BUN 15, serum creatinine 0.91, magnesium 1.8, triglycerides 138, cholesterol 151, LDL 63, HDL 60, TSH within normal limits. Current home cardiac medications include valsartan-HCtz 04536.5 mg daily, simvastatin 20 mg daily, Toprol succinate 100 mg daily, Lasix 20 mg daily, aspirin 81 mg daily. REVIEW OF SYSTEMS At the time of my exam: CONSTITUTIONAL: Denies fever or chills. CARDIOVASCULAR: Denies chest pain, shortness of breath, orthopnea, PND or palpitations. RESPIRATORY: Denies cough. GASTROINTESTINAL: Denies abdominal pain, diarrhea, constipation, nausea or vomiting. MUSCULOSKELETAL: Denies myalgias. NEUROLOGIC: Left-sided numbness and heaviness ENDOCRINE: Denies fatigue, weight change, polydipsia or polyurina. GENITOURINARY: Denies burning, hematuria or urgency with micturation. HEMATOLOGIC: Denies history of anemia or bleeding. PHYSICAL EXAMINATION Blood pressure 124/68 heart rate 70 afebrile and maintaining oxygen saturation 98% on room air CONSTITUTIONAL: No apparent distress. HEENT: Head is normocephalic. Pupils are equal, round. Sclerae anicteric. Mucous membranes of the mouth are moist. No JVD. No carotid bruit. CHEST EXAMINATION: Lungs are clear to auscultation. No chest wall tenderness is noted on palpation or with deep breathing. HEART EXAMINATION: Regular rate and rhythm. S1, S2 heard. No murmurs, gallops or rub. ABDOMEN: Soft, nontender. Positive bowel sounds. EXTREMITIES: 2+ peripheral pulses, no lower extremity edema and no calf tenderness. NEUROLOGIC EXAMINATION: Patient is awake, alert and oriented x3. ASSESSMENT Left sided paresthesia Subacute brainstem infarct noted on MRI Type 1 Diabetes Hypertension Hypercholestermia History Graves' disease status post thyroidectomy in 2016 Hypothyroidism PLAN We will make patient NPO at midnight in the case of performing JESSICA tomorrow I have discussed the risks, benefits and alternative therapies for the above- mentioned procedure and for both sedation/analgesia if indicated, as they pertain to this patient. The patient has indicated understanding and acceptance of the risks and procedures discussed. Questions have been answered appropriately and he is agreeable to move forward with the above-stated procedure. Further recommendations based on clinical course. Nurse Practitioner note has been reviewed, I agree with a documented findings and plan of care. Patient was seen and examined. Past Medical History Past Medical History: Diabetes Mellitus, Hypertension, Thyroid Disorder Additional Past Medical History / Comment(s): insulin pump History of Any Multi-Drug Resistant Organisms: None Reported Additional Past Surgical History / Comment(s): thyroidectomy Past Anesthesia/Blood Transfusion Reactions: No Reported Reaction Past Psychological History: No Psychological Hx Reported Smoking Status: Never smoker Past Alcohol Use History: None Reported Past Drug Use History: None Reported - Past Family History Mother Family Medical History: No Reported History Father Family Medical History: Cancer, Vascular Disorder Additional Family Medical History / Comment(s): Kidney cancer, cardiovascular disease Medications and Allergies Home Medications Medication Instructions Recorded Confirmed Type Aspirin [[place] Aspirin EC] 81 mg PO DAILY 04/03/21 04/03/21 History Cholecalciferol [Vitamin D3 (25 50 mcg PO DAILY 04/03/21 04/03/21 History Mcg = 1000 Iu)] Furosemide [Lasix] 20 mg PO DAILY 04/03/21 04/03/21 History Insulin Aspart (For Pump) [NovoLOG 0.01 unit SQ-PUMP CONTINUOUS 04/03/21 04/03/21 History (For Pump)] Levothyroxine Sodium [Synthroid] 150 mcg PO DAILY 04/03/21 04/03/21 History Magnesium Oxide [Lee] 500 mg PO DAILY 04/03/21 04/03/21 History Metoprolol Succinate (ER) [Toprol 100 mg PO DAILY 04/03/21 04/03/21 History Xl] Multivitamins, Thera [Multivitamin 1 tab PO DAILY 04/03/21 04/03/21 History (formulary)] Progesterone, Micronized 200 mg PO DIRECTED 04/03/21 04/03/21 History [Progesterone] Rosuvastatin Calcium [Crestor] 20 mg PO DAILY 04/03/21 04/03/21 History Ubidecarenone [Co Q-10] 100 mg PO DAILY 04/03/21 04/03/21 History Valsartan/Hydrochlorothiazide 1 tab PO DAILY 04/03/21 04/03/21 History [Valsartan-Hctz 320-12.5 mg Tab] Vitamin B Complex 1 cap PO DAILY 04/03/21 04/03/21 History metFORMIN HCL [Glucophage] 500 mg PO BID 04/03/21 04/03/21 History Allergies Allergy/AdvReac Type Severity Reaction Status Date / Time No Known Allergies Allergy Verified 04/03/21 11:16 Physical Exam Vitals: Vital Signs Temp Pulse Resp BP Pulse Ox 04/04/21 12:00 80 16 171/79 100 04/04/21 08:00 98.1 F 78 16 124/68 98 04/04/21 04:00 98 F 69 17 148/69 97 04/03/21 23:44 68 17 167/105 97 04/03/21 20:00 98.4 F 73 17 150/93 97 04/03/21 16:00 97.9 F 74 18 164/76 98 Intake and Output 04/03/21 04/04/21 04/04/21 22:59 06:59 14:59 Intake Total 360 Balance 360 Intake: Oral 360 Other: # Voids 1 2 Weight 119.6 kg Results 04/04/21 07:07 04/04/21 07:07 Lipids 04/04/21 Range/Units 07:07 Triglycerides 138.0 (0.0-149.0) mg/dL Cholesterol 151 (0-200) mg/dL HDL Cholesterol 60.0 (40.0-60.0) mg/dL Cholesterol/HDL Ratio 2.52 CBC 04/04/21 Range/Units 07:07 WBC 5.7 (3.8-10.6) k/uL RBC 4.67 (3.80-5.40) m/uL Hgb 14.6 (11.4-16.0) gm/dL Hct 41.8 (34.0-46.0) % Plt Count 248 (150-450) k/uL Comprehensive Metabolic Panel 04/04/21 Range/Units 07:07 Sodium 138 (137-145) mmol/L Potassium 3.6 (3.5-5.1) mmol/L Chloride 104 (98-107) mmol/L Carbon Dioxide 29 (22-30) mmol/L BUN 15 (7-17) mg/dL Creatinine 0.91 (0.52-1.04) mg/dL Glucose 119 H (74-99) mg/dL Calcium 9.0 (8.4-10.2) mg/dL Current Medications Generic Name Dose Route Start Last Admin Trade Name Freq PRN Reason Stop Dose Admin Acetaminophen 650 mg 04/03/21 11:58 Acetaminophen Tab 325 Mg Tab PO Q6HR PRN Pain Aspirin 81 mg 04/04/21 09:00 04/04/21 08:26 Aspirin 81 Mg PO 81 mg DAILY MAGALIS Administration Atorvastatin Calcium 40 mg 04/03/21 21:00 04/03/21 20:31 Atorvastatin 40 Mg Tab PO 40 mg HS MAGALIS Administration Cholecalciferol 50 mcg 04/04/21 09:00 04/04/21 08:26 Cholecalciferol 25 Mcg (1000 Iu) Tablet PO 50 mcg DAILY MAGALIS Administration Clopidogrel Bisulfate 75 mg 04/04/21 09:00 04/04/21 08:27 Clopidogrel 75 Mg Tab PO 75 mg DAILY MAGALIS Administration Enoxaparin Sodium 40 mg 04/04/21 09:00 04/04/21 08:27 Enoxaparin 40 Mg/0.4 Ml Syringe SQ 40 mg DAILY MAGALIS Administration Furosemide 20 mg 04/04/21 09:00 04/04/21 08:27 Furosemide 20 Mg Tab PO 20 mg DAILY MAGALIS Administration Sodium Chloride 1,000 mls @ 100 mls/hr 04/03/21 12:00 04/04/21 08:28 Saline 0.9% IV 100 mls/hr .Q10H MAGALIS Administration Insulin Aspart 0.01 unit 04/03/21 12:30 04/04/21 12:14 Insulin Aspart (For Pump) 100 Unit/Ml Vial SQ-PUMP Not Given CONTINUOUS MAGALIS Insulin Aspart 0 unit 04/03/21 17:30 04/04/21 12:11 Insulin Aspart (Novolog) 100 Unit/Ml Vial SQ Not Given AC-TID [facility] Protocol Levothyroxine Sodium 150 mcg 04/04/21 06:30 04/04/21 06:26 Levothyroxine 75 Mcg Tab PO 150 mcg DAILY@0630 MAGALIS Administration Magnesium Oxide 400 mg 04/04/21 09:00 04/04/21 08:27 Magnesium Oxide 400 Mg Tab PO 400 mg DAILY MAGALIS Administration Melatonin 3 mg 04/03/21 12:12 Melatonin 3 Mg Tablet PO HS PRN Insomnia Multivitamins 1 each 04/04/21 09:00 04/04/21 08:27 Multivitamins, Thera 1 Each Tab PO 1 each DAILY MAGALIS Administration Naloxone HCl 0.2 mg 04/03/21 12:12 Naloxone 0.4 Mg/Ml 1 Ml Vial IV Q2M PRN Opioid Reversal Intake and Output 04/03/21 04/04/21 04/04/21 22:59 06:59 14:59 Intake Total 360 Balance 360 Intake: Oral 360 Other: # Voids 1 2 Weight 119.6 kg 04/04/21 07:07 04/04/21 07:07
[2021-04-04 16:50] LABS: Glucose,Whole Blood 151 mg/dL (75-99)
--- NOTE | 2021-04-04 17:04 | P.PN ---
Subjective Progress Note Date: 04/04/21 Patient seen at bedside and she feels about the same today compared to yesterday. She continues to have numbness and tingling. She denies any neurological deficits. MR the brain is reported as subacute brainstem infarct. Nonspecific white matter demyelinating, consider vasculitis, hypertension, migraine headache, chronic microvascular angiopathy chronic multiple sclerosis is not excluded. 2-D echo was reported as left ventricle size is normal. Moderate concentric left ventricle atrophy. Ejection fraction of 60-65%. Lipid panel: Triglyceride 138, cholesterol 151, LDL 63 and HDL 60. TSH is 0.845 Hemoglobin A1c 7.9 which her diabetes is uncontrolled. Objective - Vital Signs Vital signs: Vital Signs Temp 98.1 F 04/04/21 08:00 Pulse 80 04/04/21 14:00 Resp 16 04/04/21 14:00 BP 171/79 04/04/21 12:00 Pulse Ox 100 04/04/21 12:00 Intake & Output 04/03/21 04/04/21 04/04/21 18:59 06:59 18:59 Intake Total 360 Balance 360 Weight 119.295 kg 119.6 kg Intake: Oral 360 Other: # Voids 1 2 - Exam GENERAL: The patient is lying in bed and is not in acute distress. NEUROLOGICAL: Higher mental function: The patient is awake, alert, oriented to self, place and time. Patient is following commands. No aphasia and no neglect. Cranial nerves: The pupils are round, equal and reactive to light and accommodation. Visual mcallister are full to confrontation throughout. Extraocular movement is intact no nystagmus is noted. Facial sensation is decreased to touch over the left V2 and V3 disturbtion, otherwise normal to touch elsewhere. The facial strength is normal throughout. Hearing is normal bilaterally to hand rub. Tongue is midline and moved [id number] without any difficulty. No dysarthria is noted. Shoulder shrug is normal bilaterally. Motor: Gait is deferred. The strength is 5 over 5 throughout. Normal tone and bulk. Cerebellum: Normal finger to nose bilaterally. Sensation: Sensation is decrease over the entire left lower extremity but was patchy over the left upper extremity to touch. Reflexes (right/left): 2+ throughout upper while patellar are 1-2+ and ankles are 1+ bilaterally.. Plantars are mute bilaterally. - Labs CBC & Chem 7: 04/04/21 07:07 04/04/21 07:07 Labs: Abnormal Lab Results - Last 24 Hours (Table) 04/03/21 04/04/21 04/04/21 Range/Units 20:08 06:33 07:07 Glucose 119 H (74-99) mg/dL POC Glucose (mg/dL) 139 H 113 H (75-99) mg/dL Hemoglobin A1c (4.0-6.0) % 04/04/21 04/04/21 04/04/21 Range/Units 07:07 12:08 16:47 Glucose (74-99) mg/dL POC Glucose (mg/dL) 159 H 151 H (75-99) mg/dL Hemoglobin A1c 7.9 H (4.0-6.0) % Assessment and Plan Assessment: * Subacute ischemic stroke over the right kai (Paresthesia over the entire left side including the face). Etiology of stroke seems more likely due to small vessel disease from her risk factors i(DM, HTN, hypercholestremia and obesity) * Uncontrolled Type I diabetes mellitus (on insulin pump) with HbA1 of 7.9 * Mild elevated liver function * Hypertension (since 2003) * Hypercholestremia (since 2003) * History of Graves disease s/p thyroidectomy 2005 * Hypothyroidism * Morbid obesity Plan: * MR the brain is reported as subacute brainstem infarct. Nonspecific white matter demyelinating, consider vasculitis, hypertension, migraine headache, chronic microvascular angiopathy chronic multiple sclerosis is not excluded. A wasn't totally convinced the patient had that demyelinating disease but cannot be ruled out. The imaging was shown to the patient and it was discussed and she was notified to follow up with a neurologist for further possible workup for the demyelinating disease. * 2-D echo was reported as left ventricle size is normal. Moderate concentric left ventricle atrophy. Ejection fraction of 60-65%. * Lipid panel: Triglyceride 138, cholesterol 151, LDL 63 and HDL 60. * TSH is 0.845 * Hemoglobin A1c 7.9 which her diabetes is uncontrolled. * * Patient to continue her home dose of aspirin 81 and Plavix 75 was started the in the hospital. Patient to continue on dual antiplatelets and after 21 days to stop aspirin and to continue Plavix 75 mg daily. Continue Lipitor 40 mg daily at bedtime (not higher since had side-effect ---diarrhea). * PT, OT and REHABILITATION MANAGER are consulted * Placed the patient on every 4 hours neuro checks. * Cardiology is consulted for JESSICA. * On continuous cardiac monitoring. * We'll defer the rest of the medical management to the primary team * Upon discharge, the patient needs to follow-up with a neurologist within 1-2 weeks as outpatient. If the patient is stable by tomorrow she is clear for discharge. The plan is discussed with the patient and her nurse. Clifford Guadalupe MD Neuro-Hospitalist Time with Patient: Less than 30
[2021-04-04] MEDS: ATORVASTATIN 40 MG TAB PO SCH (19:57)
[2021-04-04] MEDS ORDERED: INSULIN PUMP BASAL RATES 1 EACH MISC MISCELLANE PRN (19:58)
[2021-04-04 20:14] LABS: Glucose,Whole Blood 148 mg/dL (75-99)
[2021-04-04] MEDS: INSULIN PUMP MEAL BOLUS 1 UNIT MISC MISCELLANE SCH (20:27)
[2021-04-05] MEDS: INSULIN ASPART (NovoLOG) 100 UNIT/ML VIAL SQ SCH ×2 (05:45→12:22)
[2021-04-05] MEDS: SODIUM CHLORIDE 0.9% 1,000 ML IV SCH ×2 (05:45→14:50)
[2021-04-05] MEDS: INSULIN PUMP MEAL BOLUS 1 UNIT MISC MISCELLANE SCH ×2 (05:45→12:22)
[2021-04-05 06:19] LABS: Glucose,Whole Blood 145 mg/dL (75-99)
[2021-04-05] MEDS: LEVOTHYROXINE 75 MCG TAB PO SCH (06:26)
[2021-04-05 08:21] VITALS: TEMP 98.2
[2021-04-05] MEDS: MULTIVITAMINS, THERA 1 EACH TAB PO SCH (08:45)
[2021-04-05] MEDS: MAGNESIUM OXIDE 400 MG TAB PO SCH (08:45)
[2021-04-05] MEDS: ENOXAPARIN 40 MG/0.4 ML SYRINGE SQ SCH (08:45)
[2021-04-05] MEDS: ASPIRIN 81 MG PO SCH (08:45)
[2021-04-05] MEDS: CLOPIDOGREL 75 MG TAB PO SCH (08:45)
[2021-04-05] MEDS: CHOLECALCIFEROL 25 MCG (1000 IU) TABLET PO SCH (08:49)
[2021-04-05] MEDS ORDERED: IV FLUID CONTINUATION 1,000 ML IV ONE (09:30)
[2021-04-05] MEDS ORDERED: fentaNYL (PF) 50 MCG/ML 2 ML AMP ONE (10:01)
[2021-04-05] MEDS: BENZOCAINE SPRAY 1 CAN MUCOUS MEM ONE ×2 (10:05→10:14)
[2021-04-05] MEDS ORDERED: MIDAZOLAM 2 MG/2 ML VIAL IVP ONE ×2 (10:17)
[2021-04-05] MEDS: fentaNYL (PF) 50 MCG/ML 2 ML AMP IVP ONE ×2 (10:17→10:20)
[2021-04-05] MEDS: MIDAZOLAM 2 MG/2 ML VIAL IVP ONE ×2 (10:20→10:21)
--- NOTE | 2021-04-05 11:16 | P.TEE ---
Description of Procedure(s): Procedure performed: Transesophageal Echocardiogram with color flow doppler, pulsed wave doppler and continuous wave doppler, moderate conscious sedation Moderate conscious sedation: Moderate conscious sedation was supplied with direct supervision of myself using Versed and Fentanyl. Complications: none Indications: Cardiac source of emboli, stroke History: Patient is a pleasant 45-year-old female who presented with weakness and concern of stroke. Patient was verified by neurology with recommendations for a JESSICA to rule out cardiac source of stroke. PROCEDURE: After the risks, benefits and alternatives of the above mentioned procedure was explained in detail with the patient, informed consent was obtained. Patient was brought to the lab in a fasting state. Patient was given IV Versed and Fentanyl for sedation. The throat was sprayed with Hurricane to anesthetize the throat. A lubricated Omni probe was then introduced into the esophagus and stomach and multiple views were obtained. 2D echo with color flow doppler, pulsed wave doppler and continuous wave doppler was utilized. Agitated saline bubbles were injected to assess for any intra-atrial shunt. The probe was then removed. Patient tolerated the procedure well. Patient was transferred to the post procedure area in stable and satisfactory condition. FINDINGS: 1. The aortic valve is tricuspid and functions formally, no aortic stenosis or aortic regurgitation. 2. The mitral valve appears be normal with trace mitral regurgitation. 3. Tricuspid valve. As to be normal with trace tricuspid regurgitation. 4. The interatrial septum is intact. No evidence of PFO. 5. Left atrial appendage is free of clot. 6. Left ventricular size and function appears to be normal with ejection fraction 60%.
--- NOTE | 2021-04-05 11:49 | PN ---
PROGRESS NOTE HISTORY: Mrs. Green had an acute brainstem stroke type picture. It is unclear if this is embolic or not, but there was a request for transesophageal echo. She is a type 1 diabetic blood sugar control is fairly decent hypertensive with an acute stroke. So far she has only sinus rhythm no evidence of any atrial fibrillation. There is also a possibility of a demyelinating disorder as well, which is being considered. However, she will have a transesophageal echo today. I reviewed with her the rationale, risks, benefits, options. She understands all details and wishes to proceed. Given her presentation and young age, I am recommending a 30 day event monitor as well. PHYSICAL EXAM: Vital signs stable. No JVD. S1-S2 heard normally. No significant murmurs. Lungs are clear. Abdomen is soft, nontender. Lower extremities reveal mild left lower extremity edema. Pulses are palpable. Central nervous system grossly no focal deficits at this time based on my limited examination. RECOMMENDATIONS: She will have a transesophageal echo today. I explained to her the rationale, risks, benefits, and options. I am also recommending an event monitor. MMODL / IJN: [id number] /
[2021-04-05 12:10] LABS: Glucose,Whole Blood 114 mg/dL (75-99)
[2021-04-05] MEDS: Insulin Aspart (For Pump) 100 UNIT/ML VIAL SQ-PUMP SCH (12:21)
[2021-04-05 12:49] VITALS: BP 125/80; PULSE 91; RESP 18
--- NOTE | 2021-04-05 13:21 | P.PN ---
Subjective Progress Note Date: 04/05/21 The patient was seen at bedside and she stated that that she's having more sensation over the left side of the forehead but feels somewhat the sensation loss just crossed the midline of the chest area otherwise denies any focal weakness, denies any difficulty getting words out, denies any visual disturbanc e. Today she scheduled for JESSICA. Objective - Vital Signs Vital signs: Vital Signs Temp 98.2 F 04/05/21 08:20 Pulse 91 04/05/21 12:00 Resp 18 04/05/21 12:00 BP 125/80 04/05/21 12:00 Pulse Ox 94 L 04/05/21 12:00 Intake & Output 04/04/21 04/05/21 04/05/21 18:59 06:59 18:59 Intake Total 760 100 Balance 760 100 Weight 119 kg Intake: IV 100 Oral 760 Other: # Voids 2 2 1 - Exam GENERAL: The patient is lying in bed and is not in acute distress. NEUROLOGICAL: Higher mental function: The patient is awake, alert, oriented to self, place and time. Patient is following commands. No aphasia and no neglect. Cranial nerves: The pupils are round, equal and reactive to light and accommodation. Visual mcallister are full to confrontation throughout. Extraocular movement is intact no nystagmus is noted. Facial sensation is decreased to touch over the left V2 and V3 disturbtion, otherwise normal to touch elsewhere. The facial strength is normal throughout. Hearing is normal bilaterally to hand rub. Tongue is midline and moved [id number] without any difficulty. No dysarthria is noted. Shoulder shrug is normal bilaterally. Motor: Gait is deferred. The strength is 5 over 5 throughout. Normal tone and bulk. Cerebellum: Normal finger to nose bilaterally. Sensation: Sensation is decrease over the entire left side to touch. Otherwise normal over the right side. Reflexes (right/left): 2+ throughout upper while patellar are 1-2+ and ankles are 1+ bilaterally.. Plantars are mute bilaterally. WORK UP: * MR the brain is reported as subacute brainstem infarct. Nonspecific white matter demyelinating, consider vasculitis, hypertension, migraine headache, chronic microvascular angiopathy chronic multiple sclerosis is not excluded. A wasn't totally convinced the patient had that demyelinating disease but cannot be ruled out. The imaging was shown to the patient and it was discussed and she was notified to follow up with a neurologist for further possible workup for the demyelinating disease. * 2-D echo was reported as left ventricle size is normal. Moderate concentric left ventricle atrophy. Ejection fraction of 60-65%. * Lipid panel: Triglyceride 138, cholesterol 151, LDL 63 and HDL 60. * TSH is 0.845 * Hemoglobin A1c 7.9 which her diabetes is uncontrolled. - Labs CBC & Chem 7: 04/04/21 07:07 04/04/21 07:07 Labs: Abnormal Lab Results - Last 24 Hours (Table) 04/04/21 04/04/21 04/04/21 Range/Units 07:07 16:47 20:07 POC Glucose (mg/dL) 151 H 148 H (75-99) mg/dL Hemoglobin A1c 7.9 H (4.0-6.0) % 04/05/21 04/05/21 Range/Units 06:13 12:07 POC Glucose (mg/dL) 145 H 114 H (75-99) mg/dL Hemoglobin A1c (4.0-6.0) % Assessment and Plan Assessment: * Subacute ischemic stroke over the right kai (Paresthesia over the entire left side including the face). Etiology of stroke seems more likely due to small vessel disease from her risk factors (DM, HTN, hypercholestremia and obesity) but cannot definitely rule out cardioembolic. * Uncontrolled Type I diabetes mellitus (on insulin pump) with HbA1 of 7.9 * Mild elevated liver function * Hypertension (since 2003) * Hypercholestremia (since 2003) * History of Graves disease s/p thyroidectomy 2005 * Hypothyroidism * Morbid obesity Plan: * Continue aspirin 81mg daily (home dose) and Plavix 75 was started the in the hospital. Patient to continue on dual antiplatelets and after 21 days to stop aspirin and to continue Plavix 75 mg daily. Continue Lipitor 40 mg daily at bedtime (not higher since had side-effect ---diarrhea). * PT, OT and RETAIL GROCER are consulted * Placed the patient on every 4 hours neuro checks. * Cardiology is consulted for JESSICA. JESSICA: Is reported as left atrial appendage is free of clot. No evidence of PFO. Left ventricular size and function appears to be normal with ejection fraction is 60%. * Recommend event monitor for 30 days to be placed prior to discharge. * On continuous cardiac monitoring. On telemetry was notified No atrial fibrillation or flutter but has PVC and PAC. * We'll defer the rest of the medical management to the primary team * Upon discharge, the patient needs to follow-up with a neurologist within 1-2 weeks as outpatient. She is clear for discharge. The plan is discussed with the patient and her nurse and primary team. lCifford Guadalupe MD Neuro-Hospitalist Time with Patient: Less than 30
--- NOTE | 2021-04-05 13:57 | P.DS ---
Providers Date of admission: 04/03/21 12:18 Expected date of discharge: 04/05/21 Attending physician: Js Virgen MD Consults: 04/03/21 11:59 Consult Physician Urgent Consulting Provider: Clifford Guadalupe Consult Reason/Comments: CVA Do you want consulting provider notified?: Yes 04/04/21 13:06 Consult Physician Routine Consulting Provider: Bobo Briggs Consult Reason/Comments: JESSICA Do you want consulting provider notified?: Yes Primary care physician: Sawyer Potts MD Hospital Course: 45-year-old woman with a medical history of diabetes, hypertension, hyperlip idemia, Graves' disease status post thyroidectomy with iatrogenic hypothyroidism presented for left-sided numbness. Patient says her symptoms started yesterday morning with left hand numbness and progressed to left arm numbness, then later on in the evening she also developed left leg numbness. Throughout the day today she intermittently experienced left facial numbness as well. She called her primary care physician regarding these symptoms and was advised to come to the emergency room to rule out stroke. Patient has ever had a stroke before. Patient denies symptoms of fevers, chills, nausea, vomiting, chest pain, palpitations, cough, dyspnea, abdominal pain, constipation, diarrhea, dysuria, dyschezia, weakness of extremities. She denies visual changes, tinnitus, photo/phonophobia. Subacute brainstem stroke Patient was admitted to the hospital with telemetry. Neurology consulted on the patient made appropriate medication recommendations. MRI of the brain demonstrated subacute brainstem infarct at the level of the kai. Transthoracic Echocardiogram demonstrated appropriate ejection fraction, no diastolic dysfunction, no wall motion abnormality, no vascular pathology, no PFO. JESSICA was done as well to rule out left atrial thrombus, left ventricular thrombus, mitral valve pathology, aortic valve pathology, which were all negative. Carotid Doppler did not demonstrate any stenosis. Telemetry did not demonstrate any events. Her risk factors including A1c, lipid panel, TSH were reviewed, and medications adjusted appropriately. She was restarted on the torso 40 mg daily at bedtime, started on Plavix 75 mg daily for a total of 21 days in addition to her home aspirin. Regarding her blood pressure, her combination pill of valsartan/hydrochlorothiazide was discontinued and she was started on the valsartan component alone at the same dose of 320 mg. Her progesterone was discontinued. Patient was counseled on follow-up with the neurologist, cardiology. Hypertension Hyperlipidemia Type 2 diabetes, insulin-dependent Hypothyroidism, iatrogenic -Home medications reviewed and reconciled -Hydrochlorothiazide component was discontinued on discharge, continue valsartan 320 mg -No changes to metoprolol, Lasix -Insulin pump, metformin continued on discharge with no changes -Continued levothyroxine on discharge with no changes I spent 40 minutes coordinating this complex discharge Assessment: Gen: awake, alert HEENT: normocephalic, atraumatic, good hearing acuity, moist mucous membranes Resp: good air exchange, breathing comfortably with no accessory muscle use, clear to auscultation bilaterally CVS: good distal perfusion x 4, regular rate and rhythm without murmurs GI: soft, NTTP, ND, appropriate bowel sounds : no SPT, no CVAT, guerra catheter not present MSK: no pitting edema, no clubbing Neuro: Decreased sensation to light touch on the left side, no motor weakness, intact finger to nose bilaterally Psych: cooperative, euthymic mood Patient Condition at Discharge: Good Plan - Discharge Summary Discharge Rx Participant: Yes New Discharge Prescriptions: New Clopidogrel [Plavix] 75 mg PO DAILY #21 tab Atorvastatin [Lipitor] 40 mg PO HS #30 tab Valsartan 320 mg PO DAILY #30 tab Continue Cholecalciferol [Vitamin D3 (25 Mcg = 1000 Iu)] 50 mcg PO DAILY metFORMIN HCL [Glucophage] 500 mg PO BID Magnesium Oxide [Lee] 500 mg PO DAILY Insulin Aspart (For Pump) [NovoLOG (For Pump)] 0.01 unit SQ-PUMP CONTINUOUS Ubidecarenone [Co Q-10] 100 mg PO DAILY Levothyroxine Sodium [Synthroid] 150 mcg PO DAILY Vitamin B Complex 1 cap PO DAILY Multivitamins, Thera [Multivitamin (formulary)] 1 tab PO DAILY Metoprolol Succinate (ER) [Toprol XL] 100 mg PO DAILY Furosemide [Lasix] 20 mg PO DAILY Aspirin [[place] Aspirin EC] 81 mg PO DAILY Discontinued Valsartan/Hydrochlorothiazide [Valsartan-Hctz 320-12.5 mg Tab] 1 tab PO DAILY Rosuvastatin Calcium [Crestor] 20 mg PO DAILY Progesterone, Micronized [Progesterone] 200 mg PO DIRECTED Discharge Medication List Aspirin [[place] Aspirin EC] 81 mg PO DAILY 04/03/21 [History] Cholecalciferol [Vitamin D3 (25 Mcg = 1000 Iu)] 50 mcg PO DAILY 04/03/21 [History] Furosemide [Lasix] 20 mg PO DAILY 04/03/21 [History] Insulin Aspart (For Pump) [NovoLOG (For Pump)] 0.01 unit SQ-PUMP CONTINUOUS 04/03/21 [History] Levothyroxine Sodium [Synthroid] 150 mcg PO DAILY 04/03/21 [History] Magnesium Oxide [Lee] 500 mg PO DAILY 04/03/21 [History] Metoprolol Succinate (ER) [Toprol XL] 100 mg PO DAILY 04/03/21 [History] Multivitamins, Thera [Multivitamin (formulary)] 1 tab PO DAILY 04/03/21 [History] Ubidecarenone [Co Q-10] 100 mg PO DAILY 04/03/21 [History] Vitamin B Complex 1 cap PO DAILY 04/03/21 [History] metFORMIN HCL [Glucophage] 500 mg PO BID 04/03/21 [History] Atorvastatin [Lipitor] 40 mg PO HS #30 tab 04/05/21 [Rx] Clopidogrel [Plavix] 75 mg PO DAILY #21 tab 04/05/21 [Rx] Valsartan 320 mg PO DAILY #30 tab 04/05/21 [Rx] Follow up Appointment(s)/Referral(s): Lencho Hou MD [STAFF PHYSICIAN] - 2 Weeks (office will call with date and time of follow up appointment) Sawyer Potts MD [Primary Care Provider] - 1-2 days (please call office when open to make follow up appointment) Discharge Disposition: HOME SELF-CARE
[2021-04-05] MEDS: FUROSEMIDE 20 MG TAB PO SCH (14:49)
== END 2021-04-05 15:20 | disposition home or self-care (01) | DRG 65 ==
LOC: EC 09:23 → 3SCARD 12:18
PROVIDERS: ADMIT Internal Medicine; ATTEND Internal Medicine
PROC: B246ZZ4 Ultrasonography of Right and Left Heart, Transesophageal (ICD-10-PCS; principal; 2021-04-05 10:00)
DX: I63.89 Other cerebral infarction (principal); G81.92 Hemiplegia, unspecified affecting left dominant side; Z68.41 Body mass index [BMI] 40.0-44.9, adult; E10.51 Type 1 diabetes mellitus with diabetic peripheral angiopathy without gangrene; E10.65 Type 1 diabetes mellitus with hyperglycemia; E66.01 Morbid (severe) obesity due to excess calories; I08.1 Rheumatic disorders of both mitral and tricuspid valves; R20.0 Anesthesia of skin; E78.5 Hyperlipidemia, unspecified; E89.0 Postprocedural hypothyroidism; Z20.822 Contact with and (suspected) exposure to COVID-19; E05.00 Thyrotoxicosis with diffuse goiter without thyrotoxic crisis or storm; G70.00 Myasthenia gravis without (acute) exacerbation; I10 Essential (primary) hypertension; Z79.82 Long term (current) use of aspirin; Z79.890 Hormone replacement therapy; Z79.899 Other long term (current) drug therapy; Z96.41 Presence of insulin pump (external) (internal); Z79.4 Long term (current) use of insulin
CPT/HCPCS: 36415; 70450; 70553; 71046; 80048; 80053; 80061; 83036; 83735; 84443; 84484; 85025; 85610; 85730; 87635; 93005; 93270; 93306; 93312; 93320; 93325; 93880; 96360; 99285

== ENCOUNTER → 2021-06-27 | Outpatient (CLI) | payer OTHER ==
--- NOTE | 2021-06-27 16:06 | US ---
EXAMINATION TYPE: US abdomen complete DATE OF EXAM: 06/27/2021 COMPARISON: NONE CLINICAL HISTORY: 45-year-old female K21.9 Gastro-esophageal reflux disease without eso. History of s troke 3 months ago. Now feels pressure/pain LUQ since. TECHNIQUE: Multiple sonographic images of the abdomen are obtained. FINDINGS: EXAM MEASUREMENTS: Liver Length: 19.7 cm Gallbladder Wall: 0.2 cm CBD: 0.3 cm Spleen: 11.6 cm Right Kidney: 12.6 x 5.4 x 4.7 cm Left Kidney: 12.9 x 5.7 x 5.3 cm Pancreas: No discrete abnormality. Liver: There is a mildly heterogeneous but echogenic mass anteriorly = 5.6 x 6.0 x 4.1 cm. Posterior transmission is demonstrated. Gallbladder: wnl Evidence for sonographic Yoder's sign: No CBD: wnl Spleen: wnl Right Kidney: No hydronephrosis or masses seen Left Kidney: No hydronephrosis seen. Focal isoechoic area in the midpole measuring 4.0 x 3.9 x 3.3 c m. Upper IVC: wnl Abd Aorta: wnl IMPRESSION: 1. A mildly heterogeneous but echogenic mass anterior aspect of the liver measuring 6.0 cm. Given pos terior through-transmission, a hemangioma is suspected. Because of its size, more definitive characte rization with liver MRI is recommended. 2. No gallstones or biliary ductal dilatation. 3. A focal isoechoic area at the left kidney midpole measures 4.0 cm. A dromedary hump is favored ove r a mid pole mass. This can concurrently be evaluated on the patient's liver MRI.
== END | disposition home or self-care (01) ==
LOC: RADUSWWP 12:05
PROVIDERS: ATTEND Internal Medicine
DX: R16.0 Hepatomegaly, not elsewhere classified (principal); Z86.73 Personal history of transient ischemic attack (TIA), and cerebral infarction without residual deficits
CPT/HCPCS: 76700

== ENCOUNTER → 2021-07-22 | Outpatient (CLI) | payer OTHER ==
--- NOTE | 2021-07-23 06:38 | MR ---
EXAMINATION TYPE: MR liver wo/w con DATE OF EXAM: 07/22/2021 COMPARISON: Ultrasound exam 06/27/2021 HISTORY: Lesions on liver and left kidney-seen on US CONTRAST: Standard multiplanar, multisequence MRI departmental protocol utilizing 10ml mL intravenous Gadavist gadolinium contrast. Liver has normal size. On the T2 images there is a rounded 5.2 cm mass in the anterior right lobe of the liver with high signal. This has low signal on T1 images and shows progressive enhancement. There is nodular peripheral enhancement. This is diagnostic of hemangioma. The bile ducts are not dilated. Spleen appears intact. Kidneys have normal size. There is no hydronep hrosis. There is no evidence of adrenal mass. Stomach is intact. There is no evidence of pancreatic m ass. There is no sign of pleural effusion. There is no evidence of ascites. There is good visualization of the common bile duct which appears normal. There is no sign of retroperitoneal adenopathy. IMPRESSION: Sharply marginated mass in the liver with progressive nodular peripheral enhancement related to heman gioma. No change compared to recent ultrasound exam.
== END | disposition home or self-care (01) ==
LOC: RADMRIMAIN 16:43
PROVIDERS: ATTEND Internal Medicine
DX: K76.89 Other specified diseases of liver (principal)
CPT/HCPCS: 74183; A9585

== ENCOUNTER → 2021-09-03 | Outpatient (CLI) | payer OTHER | END | disposition home or self-care (01) | LOC: LABWHC1 07:55 | PROVIDERS: ATTEND Nurse Practitioner Family | DX: R90.82 White matter disease, unspecified (principal) | CPT/HCPCS: 36415; 82040; 82042; 82784; 83916 ==

== ENCOUNTER → 2022-05-26 | Outpatient (CLI) | payer OTHER ==
[2022-05-26 19:39] LABS: Basophils # (A) 0.08 X 10*3/uL (0.00-0.10); Eosinophils # (A) 0.23 X 10*3/uL (0.04-0.35); Eosinophils % (A) 2.8 %; HCT 39.8 % (37.2-46.3); HGB 13.4 g/dL (12.0-15.0); Immature Grans, Automated 0.1 %; Lymphocytes # (A) 1.89 X 10*3/uL (0.90-5.00); MCH 30.1 pg (27.0-32.0); MCHC 33.7 g/dL (32.0-37.0); MCV 89.4 fL (80.0-97.0); Mean Platelet Volume 10.5 fL (9.5-12.2); Monocytes # (A) 0.73 X 10*3/uL (0.20-1.00); Monocytes % (A) 8.9 %; NRBC Per 100 WBC 0 /100 WBCS (0.0-0.0); Neutrophils # (A) 5.29 X 10*3/uL (1.80-7.70); Neutrophils % (A) 64.2 %; Platelet Count 278 X 10*3/uL (140-440); RBC 4.45 X 10*6/uL (4.10-5.20); RDW 13.1 % (11.5-14.5); WBC 8.23 X 10*3/uL (4.50-10.00)
[2022-05-26 19:42] LABS: ALT 42 U/L (8-44); AST 28 U/L (13-35); African American GFR (CKD) 68.8 (60.0-200.0); Albumin 4.3 g/dL (3.8-4.9); Albumin/Globulin Ratio 1.59 (1.60-3.17); Alkaline Phosphatase 81 U/L (41-126); BUN/Creat Ratio 14.36 Ratio (12.00-20.00); Blood Urea Nitrogen 15.8 mg/dL (9.0-27.0); Calcium 9.4 mg/dL (8.7-10.3); Carbon Dioxide 25.9 mmol/L (20.0-27.5); Chloride 101 mmol/L (96-109); Chol/HDL Ratio 2.62 Ratio; Globulin 2.7 g/dL (1.6-3.3); Glucose 165 mg/dL (70-110); LDL Cholesterol,Calculated 61.6 mg/dL (0.0-131.0); Non-African American GFR(CKD) 59.3 (60.0-200.0); Potassium 4.4 mmol/L (3.5-5.5); Sodium 138 mmol/L (135-145)
== END | disposition home or self-care (01) ==
LOC: LABWHC1 12:26
PROVIDERS: ATTEND Internal Medicine
DX: I10 Essential (primary) hypertension (principal); E10.9 Type 1 diabetes mellitus without complications; E89.0 Postprocedural hypothyroidism
CPT/HCPCS: 36415; 80053; 80061; 82306; 84439; 84443; 85025

== ENCOUNTER → 2022-06-24 | Outpatient (CLI) | payer OTHER ==
--- NOTE | 2022-06-30 15:11 | MM ---
Reason for Exam: Screening (asymptomatic). Last mammogram was performed 1 year(s) and 5 month(s) ago. Patient History: Menarche at age 13. Patient has no children. Last menstrual period: 06/14/2022 Risk Values: Nicolette 5 year model risk: 0.9%. NCI Lifetime model risk: 9.3%. Prior Study Comparison: 07/15/2018 Screening Mammogram, [place]. 12/13/2019 Screening Mammogram, [place]. 01/28/2021 Bilateral Screening Mammogram, [facility]. Tissue Density: There are scattered fibroglandular densities. Findings: Analyzed By CAD. No suspicious groups of microcalcifications, spiculated or lobular masses, architectural distortion or other secondary signs of malignancy are mammographically apparent. Overall Assessment: Benign, BI-RAD 2 Management: Screening Mammogram of both breasts in 1 year. A negative mammogram report should not preclude additional follow up of suspicious palpable abnormalities. Patient should continue monthly self breast exam. A clinical breast exam by your physician is recommended on an annual basis and results should be correlated with mammographic findings. Electronically signed and approved by: Xavier Rausch D.O. Radiologis
== END | disposition home or self-care (01) ==
LOC: RADMAMWWP 13:51
PROVIDERS: ATTEND Internal Medicine
DX: Z12.31 Encounter for screening mammogram for malignant neoplasm of breast (principal)
CPT/HCPCS: 77063; 77067

== ENCOUNTER → 2022-07-08 | Outpatient (CLI) | payer OTHER ==
[2022-07-08 14:26] LABS: African American GFR (CKD) 61.9 (60.0-200.0); Anion Gap 11.8 mmol/L (10.00-18.00); BUN/Creat Ratio 16.75 Ratio (12.00-20.00); Blood Urea Nitrogen 20.1 mg/dL (9.0-27.0); Calcium 9.7 mg/dL (8.7-10.3); Carbon Dioxide 27.2 mmol/L (20.0-27.5); Non-African American GFR(CKD) 53.4 (60.0-200.0); Potassium 3.7 mmol/L (3.5-5.5)
== END | disposition home or self-care (01) ==
LOC: LABWHC1 08:27
PROVIDERS: ATTEND Internal Medicine Interventional Cardiology
DX: R60.9 Edema, unspecified (principal)
CPT/HCPCS: 36415; 80048

== ENCOUNTER → 2023-01-09 | Outpatient (CLI) | payer OTHER ==
[2023-01-09 15:16] LABS: ALT 41 U/L (8-44); AST 31 U/L (13-35); African American GFR (CKD) 73.1 (60.0-200.0); Albumin 4.2 g/dL (3.8-4.9); Albumin/Globulin Ratio 1.52 (1.60-3.17); Alkaline Phosphatase 90 U/L (41-126); BUN/Creat Ratio 13.08 Ratio (12.00-20.00); Blood Urea Nitrogen 13.6 mg/dL (9.0-27.0); Calcium 9.1 mg/dL (8.7-10.3); Carbon Dioxide 26.8 mmol/L (20.0-27.5); Chloride 94 mmol/L (96-109); Chol/HDL Ratio 3.78 Ratio; Globulin 2.8 g/dL (1.6-3.3); Glucose 82 mg/dL (70-110); LDL Cholesterol,Calculated 131.8 mg/dL (0.0-131.0); Potassium 3.8 mmol/L (3.5-5.5); Sodium 132 mmol/L (135-145); Total Protein 6.9 g/dL (6.2-8.2)
[2023-01-09 22:58] LABS: Microalbumin Creatinine Ratio <30 mg/g Creat (0-30); Urine Creatinine 36.7 mg/dL (28.0-217.0)
== END | disposition home or self-care (01) ==
LOC: LABWHC1 09:41
PROVIDERS: ATTEND Internal Medicine Endocrinology, Diabetes & Metabolism
DX: E10.65 Type 1 diabetes mellitus with hyperglycemia (principal)
CPT/HCPCS: 36415; 80053; 80061; 82043; 82570; 83036; 84443

== ENCOUNTER → 2023-05-20 | Outpatient (CLI) | payer OTHER ==
[2023-05-20 20:24] LABS: ALT 40 U/L (8-44); AST 39 U/L (13-35); Albumin 4.4 d/dL (3.8-4.9); Albumin/Globulin Ratio 1.63 Ratio (1.60-3.17); Alkaline Phosphatase 73 U/L (41-126); BUN/Creat Ratio 14.08 Ratio (12.00-20.00); Blood Urea Nitrogen 16.9 mg/dL (9.0-27.0); Calcium 9.9 mg/dL (8.7-10.3); Carbon Dioxide 25.9 mmol/L (21.6-31.8); Chloride 101 mmol/L (96-109); Chol/HDL Ratio 3.62 Ratio; Globulin 2.7 d/dL (1.6-3.3); Glucose 69 mg/dL (70-110); LDL Cholesterol,Calculated 176.2 mg/dL (0.0-131.0); Potassium 3.8 mmol/L (3.5-5.5); Sodium 138 mmol/L (135-145); Total Bilirubin 0.5 mg/dL (0.3-1.2); Total Protein 7.1 d/dL (6.2-8.2)
[2023-05-20 20:39] LABS: Basophils # (A) 0.06 X 10*3/uL (0.00-0.10); Basophils % (A) 0.9 %; Eosinophils # (A) 0.12 X 10*3/uL (0.04-0.35); Eosinophils % (A) 1.8 %; HCT 42.6 % (37.2-46.3); HGB 14.7 d/dL (12.0-15.0); Lymphocytes # (A) 1.61 X 10*3/uL (0.90-5.00); Lymphocytes % (A) 24.5 %; MCH 31.7 pg (27.0-32.0); MCHC 34.5 d/dL (32.0-37.0); MCV 91.8 FL (80.0-97.0); Mean Platelet Volume 10.4 FL (9.5-12.2); Monocytes # (A) 0.64 X 10*3/uL (0.20-1.00); Monocytes % (A) 9.7 %; NRBC Per 100 WBC 0 X 10*3/uL (0.00-0.01); Neutrophils # (A) 4.11 X 10*3/uL (1.80-7.70); Neutrophils % (A) 62.6 %; Platelet Count 315 X 10*3/uL (140-440); RBC 4.64 X 10*6/uL (4.10-5.20); RDW 13.4 % (11.5-14.5); WBC 6.57 X 10*3/uL (4.50-10.00)
== END | disposition home or self-care (01) ==
LOC: LABWHC1 14:30
PROVIDERS: ATTEND Internal Medicine
DX: E10.9 Type 1 diabetes mellitus without complications (principal)
CPT/HCPCS: 36415; 80053; 80061; 84443; 85025